=== PATIENT | male | born 1950 | race Caucasian/White ===

== ENCOUNTER 2019-09-05 11:44 | Emergency (ER) | payer SELFPAY ==
[2019-09-05 11:56] VITALS: BP 114/81
[2019-09-05] MEDS ORDERED: METHYLPRED4 M2 PO (18:12)
[2019-09-05] MEDS ORDERED: TAMSULOSIN HCL0.4 MG PO (18:13)
[2019-09-05] MEDS ORDERED: DICLOFENAC SOD100 MG PO (18:13)
[2019-09-05] MEDS ORDERED: FINASTERIDE5 MG PO (18:13)
[2019-09-05] MEDS ORDERED: NORCO1 TA2 PO (18:14)
[2019-09-05] MEDS ORDERED: ALDACTONE25 MG PO (18:14)
[2019-09-05] MEDS ORDERED: MELOXICAM15 MG PO (18:14)
[2019-09-05] MEDS ORDERED: CYCLOBENZAPR10 MG PO (18:14)
[2019-09-05] MEDS ORDERED: ATORVASTATIN CA80 MG PO (18:15)
[2019-09-05] MEDS ORDERED: FUROSEMIDE20 MG PO (18:15)
[2019-09-05] MEDS ORDERED: LISINOPRIL5 MG PO (18:15)
== END 2019-09-05 12:01 | disposition left against medical advice (07) | DRG 951 ==
LOC: ED 11:44
DX: Z91.19 Patient's noncompliance with other medical treatment and regimen (principal)

== ENCOUNTER 2019-09-05 15:41 | Emergency (ER) | payer OTHER, MEDICARE ==
[2019-09-05 18:05] VITALS: BP 122/77
[2019-09-05] MEDS ORDERED: METHYLPRED4 M2 PO (18:12)
[2019-09-05] MEDS ORDERED: FINASTERIDE5 MG PO (18:13)
[2019-09-05] MEDS ORDERED: TAMSULOSIN HCL0.4 MG PO (18:13)
[2019-09-05] MEDS ORDERED: DICLOFENAC SOD100 MG PO (18:13)
[2019-09-05] MEDS ORDERED: MELOXICAM15 MG PO (18:14)
[2019-09-05] MEDS ORDERED: ALDACTONE25 MG PO (18:14)
[2019-09-05] MEDS ORDERED: NORCO1 TA2 PO (18:14)
[2019-09-05] MEDS ORDERED: CYCLOBENZAPR10 MG PO (18:14)
[2019-09-05] MEDS ORDERED: FUROSEMIDE20 MG PO (18:15)
[2019-09-05] MEDS ORDERED: ATORVASTATIN CA80 MG PO (18:15)
[2019-09-05] MEDS ORDERED: LISINOPRIL5 MG PO (18:15)
== END 2019-09-05 18:05 | disposition home or self-care (01) | DRG 552 ==
LOC: ED 15:41
DX: S16.1XXA Strain of muscle, fascia and tendon at neck level, initial encounter (principal); S39.012A Strain of muscle, fascia and tendon of lower back, initial encounter; S00.01XA Abrasion of scalp, initial encounter; V43.52XA Car driver injured in collision with other type car in traffic accident, initial encounter; Z95.810 Presence of automatic (implantable) cardiac defibrillator

== ENCOUNTER 2024-11-22 17:03 | Emergency (ER) | payer MEDICARE ==
[~2024-11-22] VITALS: Ht 165.1 cm; Wt 90.0 kg
[2024-11-22] VITALS (7 sets, daily range): BP systolic 120–136; BP diastolic 70–82
[~2024-11-22 17:03] MED LIST: ALDACTONE25 MG PO; ATORVASTATIN CA80 MG PO; CYCLOBENZAPR10 MG PO; DICLOFENAC SOD100 MG PO; FINASTERIDE5 MG PO; FUROSEMIDE20 MG PO; LISINOPRIL5 MG PO; MELOXICAM15 MG PO; METHYLPRED4 M2 PO; NORCO1 TA2 PO; TAMSULOSIN HCL0.4 MG PO
[2024-11-22] MEDS ORDERED: Diph, Acellular Pertussis, Tet 0.5 ML/VIAL (Tdap) SDV IM ONE (17:35)
[2024-11-22] MEDS ORDERED: LIDOCAINE W/ EPINEPHRINE 10 MG/ML INJ STI ONE (17:35)
[2024-11-22 17:54] LABS: EOS% 0.2 % (0-8); HEMATOCRIT 43.6 % (39.0-50.0); HEMOGLOBIN 13.7 g/dl (14.0-18.0); IMMATURE GRANULOCYTES 0.6 % (0.0-5.0); LYMPH% 9.5 % (15-41); MEAN CELL VOLUME 96.2 fL CALC (80.0-100.0); MEAN CORPUSCULAR HGB 30.2 pG CALC (26.0-32.0); MEAN CORPUSCULAR HGB CONC 31.4 g/dL CAL (32.0-36.0); MONO% 5.9 % (2-13); NEUT# 5.36 thou/uL (1.82-7.42); NEUT% 83.8 % (42-76); RED BLOOD COUNT 4.53 mill/uL (4.70-6.10)
== END 2024-11-22 19:10 | disposition home or self-care (01) ==
LOC: ED 17:03
PROVIDERS: Family Medicine
PROC: 0JQP3ZZ Repair Left Lower Leg Subcutaneous Tissue and Fascia, Percutaneous Approach (ICD-10-PCS; principal; 2024-11-22)
PROC: 0HQKXZZ Repair Right Lower Leg Skin, External Approach (ICD-10-PCS; 2024-11-22)
PROC: 0HQDXZZ Repair Right Lower Arm Skin, External Approach (ICD-10-PCS; 2024-11-22)
DX: S81.012A Laceration without foreign body, left knee, initial encounter (principal); S81.011A Laceration without foreign body, right knee, initial encounter; S61.511A Laceration without foreign body of right wrist, initial encounter; I25.10 Atherosclerotic heart disease of native coronary artery without angina pectoris; I48.91 Unspecified atrial fibrillation; W01.0XXA Fall on same level from slipping, tripping and stumbling without subsequent striking against object, initial encounter; Z95.1 Presence of aortocoronary bypass graft; Z95.5 Presence of coronary angioplasty implant and graft; Z79.01 Long term (current) use of anticoagulants; Z79.02 Long term (current) use of antithrombotics/antiplatelets; Z95.810 Presence of automatic (implantable) cardiac defibrillator
CPT/HCPCS: 90715